=== PATIENT | female | born 1955 | race Caucasian/White ===

== ENCOUNTER 2016-12-05 09:53 | Emergency (ER) | payer MEDICARE ==
[2016-12-05 10:55] VITALS: BP 123/78
--- NOTE | 2016-12-05 10:58 | UC ---
Abdominal Pain Female HPI - HPI Summary HPI Summary: EPIGASTRIC ABDOMINAL PAIN X 5 DAYS PAIN RADIATING TO HER CHEST, NO FEVER, NO CHILL, NO NAUSEA OR VOMITING PAIN IS WORSE WITH EATING , BETTER WHEN NOT EATING NO DYSURIA - History of Current Complaint Chief Complaint: UCGI Stated Complaint: STOMACH PAIN DIARRHEA Time Seen by Provider: 12/05/16 10:14 Hx Obtained From: Patient Hx Last Menstrual Period: N/A Onset/Duration: Gradual Onset, Lasting Days - 5, Still Present Timing: Constant Severity Initially: Moderate Severity Currently: Moderate Location: Epigastric Radiates to: Chest Character: Aching Aggravating Factor(s): Food Alleviating Factor(s): NPO Associated Signs and Symptoms: Positive: Diarrhea. Negative: Diaphoresis, Fever , Cough, Chest Pain, Dizzy, Back Pain, Constipation, Blood in Stool, Urinary Symptoms, Decreased Appetite, Vaginal Bleeding, Vaginal Discharge, Nausea, Vomiting Allergies/Adverse Reactions: Allergies Allergy/AdvReac Type Severity Reaction Status Date / Time Celecoxib [From Celebrex] Allergy Intermediate Rash Verified 12/05/16 10:36 CERTAIN DETERGENTS Allergy Rash Uncoded 12/05/16 10:36 ENVIRONMENT ALLERGIES Allergy STUFFINESS Uncoded 12/05/16 10:36 Home Medications: Home Medications Carvedilol TAB* [Coreg TAB*] 3.125 mg PO DAILY 12/05/16 [History Confirmed 12/05] FLUoxetine CAP* [PROzac CAP*] 10 mg PO DAILY 12/05/16 [History Confirmed ] PMH/Surg Hx/FS Hx/Imm Hx Endocrine History Of: Reports: Thyroid Disease Denies: Diabetes Cardiovascular History Of: Reports: Hypertension Denies: Pacemaker/ICD Comment Only: Cardiac Disorders - has irregular heart beat - may need pacemaker some day Respiratory History Of: Reports: Asthma GI/ History Of: Reports: Ulcer - GASTRIC, Renal Disease Psychological History Of: Reports: Anxiety - ON MEDS, Depression - Surgical History Surgical History: Yes Surgery Procedure, Year, and Place: tumor removed from 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 bilateral total knee replacements - Family History Known Family History: Positive: Hypertension - Social History Alcohol Use: None Substance Use Type: None Smoking Status (MU): Never Smoked Tobacco Have You Smoked in the Last Year: No - Immunization History Most Recent Influenza Vaccination: 2013 Most Recent Tetanus Shot: UNKNOWN Most Recent Pneumonia Vaccination: 2 years ago Review of Systems Constitutional: Negative Skin: Negative Eyes: Negative ENT: Negative Respiratory: Negative Cardiovascular: Negative Gastrointestinal: Abdominal Pain, Diarrhea All Other Systems Reviewed And Are Negative: Yes Physical Exam Triage Information Reviewed: Yes Appearance: Pain Distress, Obese Vital Signs: Initial Vital Signs Temp 99.9 F 12/05/16 10:29 Pulse 60 12/05/16 10:29 Resp 16 12/05/16 10:29 BP 123/78 12/05/16 10:29 Pulse Ox 97 12/05/16 10:29 Vital Signs Reviewed: Yes Eye Exam: Normal Eyes: Positive: Conjunctiva Clear ENT: Positive: Normal ENT inspection, Hearing grossly normal, Pharynx normal Neck: Positive: Supple, Nontender, No Lymphadenopathy Respiratory: Positive: Chest non-tender, Lungs clear, Normal breath sounds Cardiovascular: Positive: RRR, No Murmur, Pulses Normal Abdomen Description: Positive: Soft, Other: - EPIGASTRIC TENDERNESS. Negative: CVA Tenderness (R), CVA Tenderness (L), Distended, Guarding Bowel Sounds: Positive: Present Musculoskeletal: Positive: Strength Intact, ROM Intact, No Edema Neurological: Positive: Alert Abd Pain Female Course/Dx - Differential Dx/Diagnosis Provider Diagnoses: EPIGASTRIC ABDOMINAL PAIN Discharge - Discharge Plan Condition: Stable Disposition: HOME Patient Education Materials: Acute Abdominal Pain (ED) Referrals: Sussy Lynch MD [Primary Care Provider] - 3 Days Additional Instructions: WILL CHECK BLOOD WORK INCLUDING CBC, CMP, AMYLASE AND LIPASE , WILL CHECK YOU LIVER, KIDNEY FUNCTION AND YOUR PANCREAS PLEASE CALL THE OFFICE IN ONE DAY FOR THE RESULTS FOLLOW UP WITH YOUR PCP IN 3 DAYS GO TO ED IF GETTING WORSE
[2016-12-05 16:52] LABS: Hematocrit 45 % (35-47); Hemoglobin 14.5 g/dl (12.0-16.0); Mean Corpuscular HGB Conc 32 g/dl (31-36); Mean Corpuscular Hemoglobin 28 pg (27-31); Mean Corpuscular Volume 88 fL (80-97); Mean Platelet Volume 10 um3 (7.4-10.4); Red Blood Count 5.13 10^6/ul (4.0-5.4); Red Cell Distribution Width 15 % (10.5-15); White Blood Count 7.3 10^3/ul (3.5-10.8)
[2016-12-05 17:30] LABS: Albumin 3.5 g/dL (3.2-5.2); BUN/Creatinine Ratio 22.8 (8-20); Calcium 9.4 mg/dL (8.6-10.3); EGFR African American 80.4 (>60); EGFR Non-African American 62.5 (>60); Globulin 3.7 g/dL (2-4); Potassium 4.3 mmol/L (3.5-5.0); Total Bilirubin 0.9 mg/dL (0.2-1.0); Total Protein 7.2 g/dL (6.4-8.9)
== END 2016-12-05 11:10 | disposition home or self-care (01) ==
LOC: UCCORT 09:53
DX: R10.13 Epigastric pain (principal); R19.7 Diarrhea, unspecified; E07.9 Disorder of thyroid, unspecified; I10 Essential (primary) hypertension; J45.909 Unspecified asthma, uncomplicated; F41.9 Anxiety disorder, unspecified; E66.9 Obesity, unspecified; Z90.49 Acquired absence of other specified parts of digestive tract; Z96.653 Presence of artificial knee joint, bilateral
CPT/HCPCS: 36415; 80053; 82150; 83690; 85025; 93005; 99211; G0463

== ENCOUNTER → 2018-09-27 10:40 | Emergency (ER) | payer MEDICARE, MEDICAID ==
[~2018-09-27 10:40] MED LIST: oxyCODONE/Acetamin 5/325 MG* TAB PO ONE
--- NOTE | 2018-09-27 11:14 | ED ---
Upper Extremity Pain - HPI Summary HPI Summary: 63 year old F brought in by ambulance presenting to [facility] with a chief complaint of upper right arm pain s/p mechanical fall forward, landing on bilateral knees on living room floor one hour ago. The patient rates the pain 9/ 10 in severity. Symptoms aggravated by movement. Symptoms alleviated by nothing. Patient reports bilateral knee soreness. Patient denies loss of consciousness. Patient has fentanyl patch for chronic pain. Patient was unable to get up after falling. EMS had to help her get up. She doesn't remember why she fell. She reports falling 3-4 times in the last 12 months. - History of Current Complaint Chief Complaint: EDUpperRespComplaint Stated Complaint: FALL/RIGHT ARM INJURY Time Seen by Provider: 09/27/18 10:57 Hx Obtained From: Patient Hx Last Menstrual Period: N/A Mechanism Of Injury: Other - mechanical fall forward on living room floor Onset/Duration: Started Hours Ago - 1, Still Present Timing: Constant, Lasting Hours - 1 Severity Currently: Severe Aggravating Factor(s): Movement Alleviating Factor(s): Nothing Associated Signs & Symptoms: Positive: Negative - LOC, Other - bilateral knee soreness - Allergies/Home Medications Allergies/Adverse Reactions: Allergies Allergy/AdvReac Type Severity Reaction Status Date / Time MS Celecoxib [From Celebrex] Allergy Intermediate Rash Verified 06/11/18 10:37 CERTAIN DETERGENTS Allergy Rash Uncoded 04/12/18 08:43 ENVIRONMENT ALLERGIES Allergy STUFFINESS Uncoded 04/12/18 08:43 Home Medications: Home Medications Albuterol inh POWDER (NF) [Proair Respiclick] 2 puff INH Q4HR PRN 09/27/18 [ History Confirmed 09/27/18] Aspirin EC TAB* [Ecotrin EC Low Dose 81 MG*] 81 mg PO DAILY 09/27/18 [History Confirmed 09/27/18] Benazepril (NF) [Lotensin (NF)] 5 mg PO DAILY 09/27/18 [History Confirmed ] FLUoxetine CAP* [PROzac CAP*] 40 mg PO DAILY 09/27/18 [History Confirmed ] Gabapentin CAP(*) [Neurontin 400 mg CAP(*)] 1,200 mg PO BID 09/27/18 [History Confirmed 09/27/18] Gabapentin CAP(*) [Neurontin 400 mg CAP(*)] 800 mg PO 1200 09/27/18 [History Confirmed 09/27/18] Levothyroxine Sodium [Levoxyl] 400 mcg PO DAILY 09/27/18 [History Confirmed ] Omeprazole (Nf) [Prilosec (NF)] 40 mg PO DAILY 09/27/18 [History Confirmed 09/27] Tizanidine HCl 4 - 8 mg PO TID PRN 09/27/18 [History Confirmed 09/27/18] fentaNYL PATCHs 100 MCG/HR* [Duragesic Patch 100 Mcg/Hr *] 100 mcg TRANSDERM Q72H 09/27/18 [History Confirmed 09/27/18] PMH/Surg Hx/FS Hx/Imm Hx Previously Healthy: No Endocrine/Hematology History: Reports: Hx Systemic Lupus Erythematosus, Hx Thyroid Disease, Hx Anemia Denies: Hx Diabetes Cardiovascular History: Reports: Hx Hypertension, Other Cardiovascular Problems/ Disorders - HX OF BILATERAL ANKLE SWELLING - NONE NOW Denies: Hx Pacemaker/ICD Respiratory History: Reports: Hx Asthma, Hx Sleep Apnea GI History: Reports: Hx Gastroesophageal Reflux Disease - ON MEDICATIONS, Hx Ulcer - GASTRIC History: Reports: Hx Renal Disease, Other Problems/Disorders - Renal insufficiency, Stage 2 Chronic Renal disease Musculoskeletal History: Reports: Hx Arthritis - GENERALIZED, BACK,KNEES,HIPS, FINGERS, Hx Back Problems, Hx Fibromyalgia, Other Musculoskeletal History - FIBROMYALGIA Sensory History: Denies: Hx Contacts or Glasses, Hx Hearing Aid Opthamlomology History: Denies: Hx Contacts or Glasses Neurological History: Reports: Other Neuro Impairments/Disorders - CHIARI MALFORMATION, LUPUS, FIBROMYALGIA Psychiatric History: Reports: Hx Anxiety - ON MEDS, Hx Depression Denies: Hx Panic Disorder - Surgical History Surgery Procedure, Year, and Place: tumor removed from 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 bilateral total knee replacements Hx Anesthesia Reactions: Yes - ASTHMA COMING OUT OF ANESTHESIA WITH 2003 Infectious Disease History: No Infectious Disease History: Denies: Traveled Outside the [place] in Last 30 Days - Family History Known Family History: Positive: Hypertension - Social History Alcohol Use: None Hx Substance Use: No Substance Use Type: Reports: None Hx Tobacco Use: No Smoking Status (MU): Never Smoked Tobacco Have You Smoked in the Last Year: No Review of Systems Positive: Other - right upper arm pain, bilateral kene soreness Neurological: Negative - LOC All Other Systems Reviewed And Are Negative: Yes Physical Exam - Summary Physical Exam Summary: Appearance: The patient is well-nourished in no acute distress and in no acute pain. Skin: The skin is warm and dry and skin color reflects adequate perfusion. HEENT: The head is normocephalic and atraumatic. The pupils are equal and reactive. The conjunctivae are clear and without drainage. Nares are patent and without drainage. Mouth reveals moist mucous membranes and the throat is without erythema and exudate. The external ears are intact. The ear canals are patent and without drainage. The tympanic membranes are intact. Neck: The neck is supple with full range of motion and non-tender. There are no carotid bruits. There is no neck vein distension. Respiratory: Chest is non-tender. Lungs are clear to auscultation and breath sounds are symmetrical and equal. Cardiovascular: Heart is regular rate and rhythm. There is no murmur or rub auscultated. There is no peripheral edema and pulses are symmetrical and equal. Abdomen: The abdomen is soft and non-tender. There are normal bowel sounds heard in all four quadrants and there is no organomegaly palpated. Musculoskeletal: Mild tenderness to palpation of pronation and supernation of forearm, non-tender to palpation of wrist, elbow, shoulder, and tenderness to palpation over the mid humerus Neurological: Patient is alert and oriented to person, place and time. The patient has symmetrical motor strength in all four extremities. Cranial nerves are grossly intact. Deep tendon reflexes are symmetrical and equal in all four extremities. Psychiatric: The patient has an appropriate affect and does not exhibit any anxiety or depression Triage Information Reviewed: Yes Vital Signs On Initial Exam: Initial Vitals Temp Pulse Resp BP Pulse Ox 98.7 F 75 18 173/92 97 09/27/18 10:47 09/27/18 10:47 09/27/18 10:47 09/27/18 10:47 09/27/18 10:47 Vital Signs Reviewed: Yes Diagnostics - Vital Signs Vital Signs Temp Pulse Resp BP Pulse Ox 09/27/18 10:47 98.7 F 75 18 173/92 97 - Laboratory Lab Statement: Any lab studies that have been ordered have been reviewed, and results considered in the medical decision making process. - Radiology Humerus Radiology Interpretation Completed By: Radiologist Summary of Radiographic Findings: POSSIBLE NONDISPLACED FRACTURE OF THE GREATER TUBEROSITY OF THE HUMERUS. RECOMMEND CLINICAL CORRELATION. ED physician has reviewed this report. Re-Evaluation - Re-Evaluation First Eval Re-Evaluation Time: 12:36 Comment: Patient was given x-ray results. She is agreeable to discharge. Course/Dx - Course Course Of Treatment: Ms. Ahmdai took a fall today and partially blocked it with her right arm. Shoulder has been both reassure me that she did not lose consciousness and fall. She is not quite sure why she fell but believes it was a mechanical fall. She has been having falls recently. She is complaining primarily of right upper arm pain and presents by EMS with her arm in a sling. X-ray shows a greater tuberosity fracture and she is placed in a shoulder immobilizer. She is given additional pain medication although she is on a fentanyl patch. She tolerated additional pain medication by mouth here in the department. - Diagnoses Provider Diagnoses: Humeral fracture Discharge - Sign-Out/Discharge Documenting (check all that apply): Patient Departure - Discharge Patient Received Moderate/Deep Sedation with Procedure: No - Discharge Plan Condition: Stable Disposition: HOME Prescriptions: oxyCODONE/Acetamin 5/325 MG* [Percocet 5/325 TAB*] 1 tab PO Q6H PRN #20 tab MDD 4 PRN Reason: Pain Patient Education Materials: Proximal Humerus Fracture (ED) Referrals: Jagruti Palacios MD [Primary Care Provider] - Niraj Ibarra MD [Medical Doctor] - 3 Days Additional Instructions: Follow up with Dr. Ibarra, orthopedics, in 3 days. Return to the Emergency Department for new or worsening symptoms. - Billing Disposition and Condition Condition: STABLE Disposition: Home - Attestation Statements Document Initiated by Scribe: Yes Documenting Scribe: Marva Lund Provider For Whom Mathew is Documenting (Include Credential): Gaston Wells MD Scribe Attestation: Marva Arango, scribed for Gaston Wells MD on 09/27/18 at 2157. Scribe Documentation Reviewed: Yes Provider Attestation: The documentation as recorded by the Marva hall accurately reflects the service I personally performed and the decisions made by me, Gaston Wells MD Status of Scribe Document: Viewed
--- OUTSIDE RECORDS SUMMARY | 2018-09-27 11:31 | XMS REPORT | Continuity of Care Document ---
:1955 External Reference #:[id number] Author Name Lyudmila Mora Care Team Providers Name Role Phone Sussy Lynch MD Primary Care Physician Unavailable Payers Type Date Identification Numbers Payment Provider Subscriber Effective: 2002 Policy Number: [id number] Medicare [employer] PayID: [id number] [address] [place] [address] Policy Number: [id number] Medicaid [employer] Name: 1 1 [address] PayID: [id number] [place] [address] Expires: 2014 Policy Number: [id number] [facility] Pilar Ahmadi PayID: [id number] [facility] [address] [address] Advance Directives Description No Information Available Problems Date Description Provider Status Onset: 12/03/2013 Chest pain Jerry Knowles M.D., Active FACC, FASMOHINDER Onset: 05/08/2015 Other cardiomyopathies Jerry Knowles M.D., Active FACC, FASMOHINDER Onset: 07/20/2015 Spinal stenosis of lumbar region Christopher Paredes M.D. Active Onset: 08/21/2015 Cardiomyopathy, unspecified Jerry Knowles M.D., Active FACC, FASMOHINDER Onset: 06/21/2017 Heart murmur Jerry Knowles M.D., Active FACC, FASMOHINDER Onset: 08/31/2018 Thoracic aortic ectasia Jerry Knowles M.D., Active FACC, FASNC Onset: 04/20/2018 Cervical disc disorder Christopher Paredes M.D. Active Onset: 04/06/2018 Brachial neuritis Christopher Paredes M.D. Active Onset: 04/06/2018 Chiari malformation Chirstopher Paredes M.D. Active Family History Date Family Member(s) Problem(s) Comments General Heart Disease General Diabetes General Cancer General Hypertension General Stroke General Arthritis General Congestive Heart Failure (CHF) Father Cancer Father Hypertension Father Stroke Father Arthritis Father due to Stroke () Mother Congestive Heart Failure (CHF) Mother due to CHF () Social History Type Date Description Comments Sex Unknown Marital Status Single Lives With Boyfriend Occupation Disabled Tobacco Use Start: Unknown Never Smoked Cigarettes Smoking Status Reviewed: 08/31/18 Never Smoked Cigarettes ETOH Use Denies alcohol use Tobacco Use Start: Unknown Patient has never smoked Recreational Drug Use Denies Drug Use Exercise Type/Frequency Exercises rarely Allergies, Adverse Reactions, Alerts Date Description Reaction Status Severity Comments 10/21/2013 Celebrex Active 12/03/2013 Pollen Active Medications Medication Date Status Form Strength Qnty SIG Indications Ordering Provider Carvedilol 05/08 Active Tablets 3.125mg 180ta take one I42.8 Jerry /2014 bs tablet by Dyer mouth Benson, twice M.D., daily FACC, FASNC Hydroxychloroquine Active 200mg 1 po bid Unknown Sulfate / Omeprazole Active 20mg 1 po as Unknown /0000 needed Montelukast Sodium Active 10mg 1 po qd Unknown /0000 Fentanyl Active 100mcg 1 patch q Unknown / 72 hours Advair Active 500/50 1 puff bid Unknown /0000 Vitamin D3 Active Capsules 1000Unit 1 by mouth Unknown /0000 every day Gabapentin Active Capsules 400mg as Unknown /0000 directed by physician Albuterol Sulfate Active Nebulizer 0.63mg/3M 1box every 4-6 Unknown /0000 L hours as needed Tizanidine HCL Active Capsules 4mg 90cap 1 three Unknown /0000 s times a day as needed Hydrocodone-Acetam Active Tablets 5-325mg 30tab 1 by mouth Unknown inophen /0000 s every 4-6 hours prn. Benazepril HCL Active Tablets 10mg 1 tab by Unknown /0000 mouth every day Nitrostat Active Tablets 0.4mg one sl Unknown /0000 Sub q5min up to 3 doses as needed Levoxyl Active Tablets 200mcg take 2 Unknown /0000 tablet by mouth every morning Acetaminophen Active Tablets 500mg 2 tabs 3 Unknown Extra Strength /0000 times daily as needed for pain Fluoxetine HCL Active Capsules 40mg 2 by mouth Unknown /0000 every day Methylprednisolone 03/01 Hx TBPK 4mg 21uni medrol M54.12 ts dosepak F - take as [place], 08/30 instructed /2038 Fluoxetine HCL 05/07 Hx Capsules 40mg 30cap 1 by mouth Jerry s every day Gomez Knowles, 08/30 M.DGonzales, [facility], FASMS Diazepam 05/07 Hx Tablets 2mg 15tab take 1 s tablet by Konrad, - mouth up M.D. 01/15 to 3 times a day as needed for muscle spasm Percocet 03/26 Hx Tablets 5-325mg 40tab 1-2 tabs s po q4-6 Konrad, - prn pain M.D. 05/05 Cephalexin 01/17 Hx Capsules 500mg 21cap one tablet s tid x 7 Konrad, - days M.D. 03/25 Diazepam 01/17 Hx Tablets 2mg 30tab take 1 s tablet by Konrad, - mouth up M.D. 05/07 to 3 times a day as needed for muscle spasm Hydrocodone-Acetam 01/17 Hx Tablets 5-325mg 60tab 1-2 Dirk ino s tablets by Konrad, - mouth M.D. 03/25 every - hours as needed pain Percocet 12/09 Hx Tablets 5-325mg 90tab 1-2 tabs Dir s po q4-6 Konrad, - prn pain M.D. 03/25 Bactrim DS 04/10 Hx Tablets 800-160mg 14tab 1 po bid Dir s for 7 days Konrad, - M.D. 10/21 Percocet 04/05 Hx Tablets 5-325mg 90tab 1-2 tabs Dir s po q4-6 Konrad, - prn pain M.D. 10/21 Calcitriol / Hx 0.5mcg 1 po qd - 06/19 Gabapentin / Hx - 11/06 Benazepril HCL Hx 10mg 1 po qd Unknown - 12/08 Vitamin D-1000 Hx Unknown - 11/06 Levothyroxine Hx 300mcg 1po qd Unknown - 07/20 Nifedipine ER Hx 60mg 1 po qd - 06/20 Venlafaxine HCL ER Hx Unknown - 11/07 Oxycontin Hx 40mg - 11/06 Levothyroxine Hx Tablets 50mcg 90tab 1 by mouth Unknown Sodium /0000 s every day - 05/07 Allergy 00 Hx 1 by mouth Unknown /0000 every day - prn in the summer time Sulfamethoxazole/T 00 Hx Tablets 20tab 1 by mouth Unknown rimethoprim DS /0000 s twice a day Ferrous Sulfate Hx Tablets 325(65Fe) 1 by mouth Unknown /0000 mg bid - 08/30 Medications Administered in Office Medication Date Status Form Strength Qnty SIG Indications Ordering Provider Depomedrol Administered Injection Dirk Konrad, 20MG 018 M.D. Technetium TC Administered Injection Ica Nuclear 99M 017 Schedule Tetrofosmin, Per Unit Dose Up To 40 Millicuries Inj, Administered Injection Jerryallen Dyer Regadenoson, 017 Knowles, 0.1 MG M.D., FACC, FASNC Technetium TC Administered Injection Jerry Dyer 99M 017 Knowles, Tetrofosmin, M.D., FACC, Per Unit Dose FASNC Up To 40 Millicuries Depomedrol Administered Injection Fern 40MG 015 Liptak, RPA-C Inj, Administered Injection Hay Gilmore Regadenoson, 015 Gregg, DO 0.1 MG FACC Inj, Administered Injection Adry Regadenoson, 015 Dyer, 0.1 MG M.D. Technetium TC Administered Injection Hay S. 99M 015 Cristino, Tetrofosmin, FACC Per Unit Dose Up To 40 Millicuries Technetium TC Administered Injection Adry 99M 015 Dyer, Tetrofosmin, M.D. Per Unit Dose Up To 40 Millicuries Inj, Administered Injection Jerry Dyer Regadenoson, 014 Knowles, 0.1 MG M.D., FACC, FASNC Technetium TC Administered Injection Jerry Dyer 99M 014 Knowles, Tetrofosmin, M.D., FACC, Per Unit Dose FASNC Up To 40 Millicuries Inj, Administered Injection Jerry Dyer Regadenoson, 013 Knowles, 0.1 MG M.D., FACC, FASNC Technetium TC Administered Injection Jerry Dyer 99M 013 Knowles, Tetrofosmin, M.D., FACC, Per Unit Dose FASNC Up To 40 Millicuries Immunizations Description No Information Available Vital Signs Date Vital Result Comment 08/31/2018 10:09am Height 61.5 inches 5'1.50" Weight 308.00 lb with shoes Heart Rate 72 /min BP Systolic Standing 130 mmHg lue large cuff BP Diastolic Standing 80 mmHg lue large cuff BP Systolic Lying Down 128 mmHg lue large cuff BP Diastolic Lying Down 80 mmHg lue large cuff Respiratory Rate 12 /min BMI (Body Mass Index) 57.2 kg/m2 Ejection Fraction 55-60% echo. 07/26/18 04/20/2018 9:53am Height 61.5 inches 5'1.50" Weight 295.00 lb BP Systolic Sitting 130 mmHg BP Diastolic Sitting 70 mmHg Pain Level 7 BMI (Body Mass Index) 54.8 kg/m2 04/06/2018 10:45am Height 61.5 inches 5'1.50" Weight 295.00 lb BP Systolic Sitting 150 mmHg BP Diastolic Sitting 100 mmHg Pain Level 9 BMI (Body Mass Index) 54.8 kg/m2 03/01/2018 10:20am Height 61.5 inches 5'1.50" Heart Rate 64 /min BP Systolic Sitting 110 mmHg BP Diastolic Sitting 78 mmHg Respiratory Rate 16 /min Body Temperature 98.0 F Pain Level 9 02/01/2018 10:16am Height 61.5 inches 5'1.50" Weight 295.00 lb Heart Rate 66 /min BP Systolic Sitting 130 mmHg BP Diastolic Sitting 72 mmHg Respiratory Rate 18 /min Pain Level 9 BMI (Body Mass Index) 54.8 kg/m2 06/21/2017 10:40am Height 61.5 inches 5'1.50" Weight 199.00 lb without shoes Heart Rate 64 /min BP Systolic Sitting 104 mmHg Rue lg cuff BP Diastolic Sitting 66 mmHg Rue lg cuff BP Systolic Standing 98 mmHg Rue lg cuff BP Diastolic Standing 60 mmHg Rue lg cuff Respiratory Rate 16 /min BMI (Body Mass Index) 37.0 kg/m2 Ejection Fraction 55-60% date 05/17/2017 ECHO 01/04/2017 4:10pm Height 63 inches 5'3" Weight 283.00 lb Respiratory Rate 18 /min Body Temperature 98.2 F Pain Level 10 BMI (Body Mass Index) 50.1 kg/m2 11/04/2016 10:35am Height 64 inches 5'4" Weight 292.38 lb Heart Rate 76 /min BP Systolic Sitting 142 mmHg large right BP Diastolic Sitting 72 mmHg large right BP Systolic Standing 138 mmHg large right BP Diastolic Standing 72 mmHg large right Respiratory Rate 18 /min O2 % BldC Oximetry 98 % BMI (Body Mass Index) 50.2 kg/m2 10/14/2016 10:58am Height 64 inches 5'4" Weight 290.12 lb Heart Rate 68 /min BP Systolic Sitting 122 mmHg left LC BP Diastolic Sitting 68 mmHg left LC BP Systolic Standing 98 mmHg Left LC BP Diastolic Standing 62 mmHg Left LC Respiratory Rate 18 /min Pain Level 8 O2 % BldC Oximetry 98 % Ra BMI (Body Mass Index) 49.8 kg/m2 09/23/2016 2:17pm Height 64 inches 5'4" Weight 300.00 lb Heart Rate 61 /min BP Systolic 112 mmHg BP Diastolic 62 mmHg BMI (Body Mass Index) 51.5 kg/m2 08/21/2015 11:10am Height 64 inches 5'4" Weight 295.00 lb Heart Rate 60 /min BP Systolic Sitting 102 mmHg Ra large cuff BP Diastolic Sitting 64 mmHg Ra large cuff BP Systolic Standing 100 mmHg Ra BP Diastolic Standing 60 mmHg Ra Respiratory Rate 16 /min BMI (Body Mass Index) 50.6 kg/m2 Ejection Fraction 50-55% 07/07/15 ECHO 07/30/2015 10:57am Height 64 inches 5'4" Weight 299.00 lb Heart Rate 72 /min BP Systolic Sitting 124 mmHg BP Diastolic Sitting 70 mmHg Pain Level 8 BMI (Body Mass Index) 51.3 kg/m2 07/20/2015 11:00am Height 64 inches 5'4" Weight 299.00 lb Heart Rate 62 /min BP Systolic Sitting 160 mmHg BP Diastolic Sitting 80 mmHg Pain Level 6 back BMI (Body Mass Index) 51.3 kg/m2 07/17/2015 10:09am Height 64 inches 5'4" Weight 317.00 lb Pain Level 6 BMI (Body Mass Index) 54.4 kg/m2 07/10/2015 9:19am Height 64 inches 5'4" Weight 317.00 lb Heart Rate 81 /min Pain Level 8 BMI (Body Mass Index) 54.4 kg/m2 05/08/2015 11:00am Height 64 inches 5'4" Weight 317.00 lb Heart Rate 62 /min BP Systolic Sitting 148 mmHg LA, large BP Diastolic Sitting 94 mmHg LA, large BMI (Body Mass Index) 54.4 kg/m2 Ejection Fraction 40% 01/30/15 echo 11/12/2014 10:28am Height 64 inches 5'4" Body Temperature 97.9 F Pain Level 1 06/16/2014 10:33am Height 64 inches 5'4" Weight 312.00 lb Heart Rate 64 /min BP Systolic Sitting 128 mmHg L arm large cuff BP Diastolic Sitting 80 mmHg L arm large cuff BP Systolic Standing 124 mmHg BP Diastolic Standing 80 mmHg Respiratory Rate 18 /min BMI (Body Mass Index) 53.5 kg/m2 05/14/2014 10:03am Height 64 inches 5'4" Heart Rate 60 /min BP Systolic 137 mmHg BP Diastolic 79 mmHg 05/07/2014 9:55am Height 64 inches 5'4" Weight 316.75 lb Heart Rate 66 /min BP Systolic 130 mmHg BP Diastolic 82 mmHg BP Systolic Sitting 154 mmHg BP Diastolic Sitting 88 mmHg Respiratory Rate 18 /min BMI (Body Mass Index) 54.4 kg/m2 03/26/2014 2:30pm Height 64 inches 5'4" Weight 320.00 lb Heart Rate 80 /min BP Systolic 128 mmHg BP Diastolic 74 mmHg BMI (Body Mass Index) 54.9 kg/m2 02/05/2014 10:00am Height 63 inches 5'3" Weight 310.00 lb Heart Rate 76 /min Pain Level 1 BMI (Body Mass Index) 54.9 kg/m2 01/17/2014 9:41am Height 63 inches 5'3" Heart Rate 77 /min BP Systolic 152 mmHg BP Diastolic 109 mmHg Body Temperature 98.6 F 12/09/2013 9:28am Height 63 inches 5'3" Weight 310.00 lb Heart Rate 79 /min BP Systolic 120 mmHg BP Diastolic 76 mmHg BMI (Body Mass Index) 54.9 kg/m2 12/03/2013 1:06pm Height 63 inches 5'3" Weight 311.50 lb Heart Rate 76 /min BP Systolic Sitting 114 mmHg LA large cuff BP Diastolic Sitting 88 mmHg LA large cuff BP Systolic Standing 108 mmHg LA BP Diastolic Standing 90 mmHg LA Respiratory Rate 18 /min BMI (Body Mass Index) 55.2 kg/m2 Results Test Date Facility Test Result H/L Range Note CBC No Diff 12/13/2013 [facility] White Blood 6.7 10^3/uL N 4.8-10.[address] [place] [address] [phone] Red Blood Count 4.74 10^6/uL N 4.0-5.4 Hemoglobin 12.6 g/dL N 12.0-16.0 Hematocrit 39 % N 35-47 Mean Corpuscular Volume 82 fL N 80-97 Mean Corpuscular Hemoglobin 27 pg N 27-31 Mean Corpuscular HGB Conc 32 g/dL N 31-36 Red Cell Distribution Width 16 % High 10.5-15 Platelet Count 306 10^3/uL N 150-450 Mean Platelet Volume 9 um3 N 7.4-10.4 Inr/Protime 12/13/2013 [facility] Inr 0.91 N 0.85-1.[address] [place] [address] [phone] Laboratory test 12/13/2013 [facility] Activated 33.2 N 24.0- 36.[address] [place] [address] Thrombo Time [phone] Basic Metabolic 12/13/2013 [facility] Sodium 134 mmol/L N 133- [address] [place] [address] [phone] Potassium 4.7 mmol/L N 3.7-5.6 Chloride 101 mmol/L N 101-111 Co2 Carbon Dioxide 29 mmol/L N 22-32 Anion Gap 4 mmol/L N 2-11 Glucose 97 mg/dL N 70-100 Blood Urea Nitrogen 23 mg/dL N 6-24 Creatinine 1.15 mg/dL High 0.51-0.95 BUN/Creatinine Ratio 20.0 N 8-20 Calcium 9.5 mg/dL N 8.6-10.3 Egfr Non- 48.8 N >60 Egfr 62.8 N >60 2 Type & Screen 12/13/2013 [facility] Patient Blood Type A Positive N [address] [place] [address] [phone] Antibody Screen POSITIVE N Laboratory test 12/13/2013 [facility] Antibody FYA [address] [place] [address] [phone] Antibody Id Autocontrol 0 N Direct Antiglobulin Test NEGATIVE N CBC Auto Diff 04/05/2013 [facility] White Blood 9.3 10^3/uL 4.8-10.[address] [place] [address] [phone] Red Blood Count 4.93 10^6/uL 4.0-5.4 Hemoglobin 14.4 g/dL 12.0-16.0 Hematocrit 44 % 35-47 Mean Corpuscular Volume 88 fL 80-97 Mean Corpuscular Hemoglobin 29 pg 27-31 Mean Corpuscular HGB Conc 33 g/dL 31-36 Red Cell Distribution Width 14 % 10.5-15 Platelet Count 247 10^3/uL 150-450 Mean Platelet Volume 10 um3 7.4-10.4 Abs Neutrophils 5.9 10^3/uL 1.5-7.7 Abs Lymphocytes 2.2 10^3/uL 1.0-4.8 Abs Monocytes 0.8 10^3/uL 0-0.8 Abs Eosinophils 0.3 10^3/uL 0-0.6 Abs Basophils 0.1 10^3/uL 0-0.2 Abs Nucleated RBC 0.01 10^3/uL Granulocyte % 63.7 % 38-83 Lymphocyte % 23.5 % Low 25-47 Monocyte % 9.0 % 1-9 Eosinophil % 3.2 % 0-6 Basophil % 0.6 % 0-2 Nucleated Red Blood Cells % 0.1 Basic Metabolic Panel 04/05/2013 [facility] Sodium 137 mmol/L 133-[address] [place] [address] [phone] Potassium 4.4 mmol/L 3.5-5.0 Chloride 103 mmol/L 101-111 Co2 Carbon Dioxide 29.0 mmol/L 22-32 Anion Gap 5.0 mmol/L 2-11 Glucose 86 mg/dL 70-100 Blood Urea Nitrogen 20 mg/dL 6-24 Creatinine 1.10 mg/dL 0.50-1.40 BUN/Creatinine Ratio 18.2 8-20 Calcium 9.8 mg/dL 8.1-9.9 Egfr Non- 51.6 >60 Egfr 66.3 >60 4 Type & Screen 04/05/2013 [facility] Patient Blood Type A Positive [address] [place] [address] [phone] Antibody Screen POSITIVE Laboratory test 04/05/2013 [facility] Antibody FYA 5 finding [facility] [place] [address] [phone] Antibody Id Autocontrol 0 Direct Antiglobulin Test NEGATIVE Urinalysis 04/05/2013 [facility] Urine Color Veronica [address] [place] [address] [phone] Urine Appearance Clear Urine Specific Dunbar 1.028 1.010-1.030 Urine Esterase 2+ Abnormal Negative Urine Nitrate Negative Negative Urine Urobilinogen Negative E.U./dL Negative Urine Protein Negative mg/dL Negative Urine pH 5.0 5-9 Urine Blood Negative Negative Urine Ketones Negative mg/dL Negative Urine Bilirubin 1+ Abnormal Negative Urine Glucose Negative mg/dL Negative Urine Microscopic 04/05/2013 [facility] Urine WBC 1+ (<10 None Seen [address] [place] [address] /hpf) [place] [address] [phone] Urine RBC None Seen None Seen Bacteria Urine None Seen None Seen Urine Culture And 04/05/2013 [facility] Urine Culture (SEE NOTE ) [address] [place] [address] [phone] 1 OSTEOARTHROS NOS-PELVIS 2 Because ethnic data is not always readily available, this report includes an eGFR for both -Americans and non- Americans. The National Kidney Disease Education Program (NKDEP) does not endorse the use of the MDRD equation for patients that are not between the ages of 18 and 70, are , have extremes of body size, muscle mass, or nutritional status, or are non- or non-. According to the National Kidney Foundation, irrespective of diagnosis, the stage of the disease is based on the level of kidney function: Stage Description GFR(mL/min/1.73 m(2)) 1 Kidney damage with normal or decreased GFR 90 2 Kidney damage with mild decrease in GFR 60-89 3 Moderate decrease in GFR 30-59 4 Severe decrease in GFR 15-29 5 Kidney failure <15 (or dialysis) 3 K 4 Because ethnic data is not always readily available, this report includes an eGFR for both -Americans and non- Americans. The National Kidney Disease Education Program (NKDEP) does not endorse the use of the MDRD equation for patients that are not between the ages of 18 and 70, are , have extremes of body size, muscle mass, or nutritional status, or are non- or non-. According to the National Kidney Foundation, irrespective of diagnosis, the stage of the disease is based on the level of kidney function: Stage Description GFR(mL/min/1.73 m(2)) 1 Kidney damage with normal or decreased GFR 90 2 Kidney damage with mild decrease in GFR 60-89 3 Moderate decrease in GFR 30-59 4 Severe decrease in GFR 15-29 5 Kidney failure <15 (or dialysis) 5 K 6 RUN DATE: 04/07/13 [facility] LAB LIVE PAGE 1 RUN TIME: [address] [place] [address] Specimen Inquiry Name: PILAR AHMADI : [address]: Cristofer Silvestre MD Acct: [id number] Unit: [id number] AGE: 57 Location: [facility] Re04/05/13 SEX: F Status: REG REF SPEC: [id number] MICHELLE: 04/05/13-[address] [facility] [address]: Cristofer Silvestre MD REQ: [id number] RECD: 04/05/13 STATUS: TERRIE DERAS DR: Sussy Lynch MD _ SOURCE: URINE SPDESC: ORDERED: Urine Culture Procedure Result Verified Site Urine Culture Final 04/07/13- 0953 ML Organism 1 STREP GROUP B [place] Count 75-100,000 (Many) CFU/ML Organism 2 NORMAL MASON [place] Count 25-50,000 (Moderate) CFU/ML Susceptibility testing of penicillins and other B-lactams approved by FDA for treatment of Streptococcus pyogenes (Group A Strep) and Streptococcus agalactiae (Group B Strep) is not necessary for clinical purposes and need not be done routinely, since as with vancomycin, resistant strains have not been recognized. (CLSI K552-A98;p.66) Positive isolates will be saved for one week. Please call the Microbiology Laboratory if further susceptibility testing is needed. END OF REPORT * ML=Testing performed at Main Lab DEPARTMENT OF PATHOLOGY, [address] [place] [address] Joseph Collier M.D. Director [facility] Permit #[id number] Procedures Date Code Description Status 08/31/2018 34252 EKG Tracing & Interpretation Completed 07/26/2018 94472 ECHO Transthoracic, Real-Time 2D With Doppler And Color Completed Flow 07/26/2018 36718 ECHO Transthoracic, Real-Time 2D With Doppler And Color Completed Flow 02/01/2018 27208 Inject/Drain Joint/Bursa Major W/O US Completed 06/21/2017 46406 EKG Tracing & Interpretation Completed 05/17/2017 92916 ECHO Transthoracic, Real-Time 2D With Doppler And Color Completed Flow 05/17/2017 35994 ECHO Transthoracic, Real-Time 2D With Doppler And Color Completed Flow 10/28/2016 65518 Stress Test Completed 10/28/2016 76410 Myocardial Perfusion Imaging Tomographic (Spect) Multiple Completed Studies 10/14/2016 52029 EKG Tracing & Interpretation Completed 10/06/2016 73455 ECHO Transthoracic, Real-Time 2D With Doppler And Color Completed Flow 07/10/2015 95052 Injection Single Tendon Origin/Insertion Completed 07/07/2015 37301 ECHO Transthoracic, Real-Time 2D With Doppler And Color Completed Flow 05/08/2015 38427 EKG Tracing & Interpretation Completed 03/16/2015 95596 Stress Test Completed 03/16/2015 42342 Myocardial Perfusion Imaging Tomographic (Spect) Multiple Completed Studies 06/02/2014 09927 Stress Test Completed 06/02/2014 65250 Myocardial Perfusion Imaging Tomographic (Spect) Multiple Completed Studies 05/14/2014 27511 Xray Knee 3 Views Completed 05/14/2014 14358 Rad Exam; Knee, Ap&L Completed 05/14/2014 49876 Rad Exam; Pelvis Completed 05/07/2014 13976 EKG Tracing & Interpretation Completed 03/26/2014 47783 Rad Exam; Knee, Ap&L Completed 03/26/2014 87230 Rad Exam; Knee, Ap&L Completed 02/05/2014 59373 Xray Knee 3 Views Completed 02/05/2014 85470 Rad Exam; Knee, Ap&L Completed 01/17/2014 23375 Xray Knee 3 Views Completed 01/17/2014 27862 Xray Knee 3 Views Completed 01/17/2014 04008 Rad Exam; Knee, Ap&L Completed 01/17/2014 09466 Rad Exam; Knee, Ap&L Completed 12/24/2013 65569 TKR Total Knee Replacement Completed 12/24/2013 76341 TKR Total Knee Replacement Completed 12/09/2013 57327 Rad Exam; Knee, Ap&L Completed 12/09/2013 13245 Rad Exam; Knee, Ap&L Completed 12/03/2013 23827 EKG Tracing & Interpretation Completed 07/08/2013 11912 Rad Exam; Knee, Ap&L Completed 07/08/2013 73994 Xray Knee 3 Views Completed 05/27/2013 10097 Xray Knee 3 Views Completed 05/27/2013 87591 Rad Exam; Knee, Ap&L Completed 04/16/2013 26177 TKR Total Knee Replacement Completed 04/16/2013 11761 TKR Total Knee Replacement Completed 02/04/2013 25854 EKG Tracing & Interpretation Completed 01/25/2013 93526 ECHO Transthoracic, Real-Time 2D With Doppler And Color Completed Flow 01/18/2013 21515 Stress Test Completed 01/18/2013 14556 Myocardial Perfusion Imaging Tomographic (Spect) Multiple Completed Studies 01/07/2013 95641 EKG Tracing & Interpretation Completed 12/07/2012 17147 Rad Exam; Both Knees, Standing Ap Completed Encounters Type Date Location Provider Dx Diagnosis Office Visit 04/20/2018 Neurosurgery Christopher Paredes M50.123 Cervical disc 9:50a [facility] disorder at C6-C7 level with radiculopathy Office Visit 04/06/2018 Neurosurgery Christopher Paredes M54.12 Radiculopathy, 10:40a [facility] cervical region 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 Office Visit 02/01/2018 Orthopedic Cristofer Silvestre M54.12 Radiculopathy, 10:15a [facility] cervical region AT [place] M65.812 Other synovitis and tenosynovitis, left shoulder M25.512 Pain in left shoulder Office Visit 06/21/2017 11:00a [place] [facility] Jerry Dyer R01.1 Cardiac murmur, Of [facility] Knowles M.D., unspecified [facility] I42.9 Cardiomyopathy, unspecified Office Visit 01/04/2017 3:15p Orthopedic Cristofer Silvestre, M54.41 Lumbago with [facility] sciatica, right C.M.A. side Office Visit 11/04/2016 11:00a Cardiology Jerry Dyer R07.9 Chest pain, Services [facility] Knowles M.D., unspecified AT [facility], [facility] Office Visit 10/14/2016 11:20a Cardiology Jerry Dyer R07.9 Chest pain, [facility] Knowles M.D., unspecified AT [facility], [facility] Office Visit 10/05/2016 10:30a Orthopedic Cristofer Silvestre, S80.01xD Contusion of [facility] right knee, C.M.A. subsequent encounter Office Visit 09/23/2016 1:45p Orthopedic Lula S80.01xA Contusion of [facility] Sanchez right knee, C.M.A. initial encounter M25.561 Pain in right knee Z96.651 Presence of right artificial knee joint W00.0xxA Fall on same level due to ice and snow, initial encounter Office Visit 08/21/2015 Cardiology Jerry Dyer I42.9 Cardiomyopathy, 11:15a Services [facility] YOSSI Knowles M.D., unspecified [facility], [facility] Office Visit 07/30/2015 Neurosurgery Christopher M48.06 Spinal stenosis, 11:15a Services [facility] [place], lumbar region Wilfredo Office Visit 07/20/2015 Neurosurgery Christopher M48.06 Spinal stenosis, 11:00a Services Of [facility] [place], lumbar region Wilfredo Office Visit 07/17/2015 Orthopedic Lula Z47.1 Aftercare following 10:00a Services Of Constantino Sanchez M.D. 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 Pelvic & Thigh 715.96 Osteoarthrosis Unspec Genlzd Or Localized Lower Leg 715.35 Osteoarthrosis Localzd Not Spec Prime Or 2Ndy Pelvic & Thigh V43.65 Knee Replacement By Other Means Office Visit 06/16/2014 10:30a Ariana Dyer 786.50 Pain Chest Unspec Cardiology Of Wilfredo Knowles, [facility], [facility] Office Visit 05/14/2014 10:15a Orthopedic Cristofer Silvestre 715.96 Osteoarthrosis Services Of Wilfredo Unspec Genlzd Or C.M.A. Localized Lower Leg 715.95 Osteoarthrosis Unspec Genlzd Or Localized Pelvic & Thigh Office Visit 05/07/2014 Mary Dyer 786.50 Pain Chest Unspec 10:00a Cardiology Wilfredo Knowles, [facility], [facility] Office Visit 03/26/2014 Orthopedic Fern 715.96 Osteoarthrosis 1:15p Services Of SHELL Mercado Unspec Genlzd Or C.M.A. Localized Lower Leg 715.96 Osteoarthrosis Unspec Genlzd Or Localized Lower Leg Office Visit 12/25/2013 7:59a [facility] Safia S. 780.53 Hypersomnia W / Assoc,pc Mak, N.P. Sleep Apnea Hospitalists Unspecified 401.9 Hypertension Unspec 278.01 Obesity Morbid 493.00 Asthma Extrinsic Unspecified Office Visit 12/24/2013 7:54a [facility] Siria Mcintyre, 780.53 Hypersomnia W/ Assoc,pc N.P. Sleep Apnea Hospitalists Unspecified 401.9 Hypertension Unspec 278.01 Obesity Morbid 493.00 Asthma Extrinsic Unspecified Office Visit 12/03/2013 [facility] Jerry Dyer 786.50 Pain Chest Unspec 1:00p Of Kvng Knowles M.D., [facility], [facility] Office Visit 10/21/2013 Orthopedic Cristofer Silvestre, 715.96 Osteoarthrosis 9:45a Services Of Constantino Villalobos Unspec Genlzd Or Localized Lower Leg Office Visit 04/17/2013 [facility] Bro 729.1 Myalgia & Myositis 3:29p Assoc,pc Mohamud, Unspec Hospitalists N.P. 780.53 Hypersomnia W/ Sleep Apnea Unspecified 401.9 Hypertension Unspec V43.65 Knee Replacement By Other Means Office Visit 04/16/2013 3:28p [facility] Safia S. 780.53 Hypersomnia W / Assoc,pc Mak, N.P. Sleep Apnea Hospitalists Unspecified 729.1 Myalgia & Myositis Unspec 401.9 Hypertension Unspec v43.65 Knee Replacement By Other Means Office Visit 02/04/2013 12:00p Ariana Dyer 786.50 Pain Chest Unspec Cardiology Of Wilfredo Knowles, [facility], [facility] Office Visit 01/07/2013 1:15p Ariana Dyer 786.05 Shortness Of Breath Cardiology Of Wilfredo Knowles, [facility], [facility] Office Visit 12/07/2012 1:00p Orthopedic Cristofer Silvestre, 715.16 Osteoarthrosis Services Of Wilfredo Localized Prim Lower C.M.A. Leg Plan of Treatment 08/31/2018 - Jerry Knowles M.D., [facility], KEWSPY90.810 Thoracic aortic ectasiaNew Orders:Echocardiogram, Ordered: 08/31/18Comments:As discussed, overall I feel your heart and aorta are doing well. Please continue to avoid lifting greater than 30 lbs and call me if faint. Please continue to exercise.Follow up:one year after echo
[2018-09-27 18:08] VITALS: BP 134/95
== END | disposition home or self-care (01) ==
LOC: ED 10:40
DX: S42.301A Unspecified fracture of shaft of humerus, right arm, initial encounter for closed fracture (principal); M79.601 Pain in right arm; M32.9 Systemic lupus erythematosus, unspecified; I10 Essential (primary) hypertension; K21.9 Gastro-esophageal reflux disease without esophagitis; W19.XXXA Unspecified fall, initial encounter; Y92.9 Unspecified place or not applicable
CPT/HCPCS: 99283; A9270-GY